=== PATIENT | male | born 1965 | race African-American/Black ===

== ENCOUNTER 2017-08-23 09:13 | Emergency (ER) | payer BC, SELFPAY | END 2017-08-23 10:35 | disposition home or self-care (01) | LOC: ERS 09:13 | DX: S00.03XA Contusion of scalp, initial encounter (principal); H57.8 Other specified disorders of eye and adnexa; W22.8XXA Striking against or struck by other objects, initial encounter | CPT/HCPCS: 99283 ==

== ENCOUNTER 2019-01-08 11:37 | Emergency (ER) | payer SELFPAY ==
--- NOTE | 2019-01-08 12:22 | RAD ---
TWO VIEWS OF THE LEFT HIP: COMPARISON: 04/06/2014. HISTORY: Left hip pain. FINDINGS: Two views left hip show no evidence of acute fracture or dislocation. There is moderate joint space narrowing. A subchondral cyst is seen along the acetabular roof. IMPRESSION: Moderate degenerative changes of the left hip without acute osseous abnormality. POS: [facility]
[2019-01-08] MEDS ORDERED: Ketorolac Tromethamine 60 MG/2 ML VIAL ONE (13:59)
[2019-01-08] MEDS ORDERED: Dexamethasone 4 mg/ml Vial ONE (13:59)
[2019-01-08] MEDS ORDERED: Ibuprofen 800 MG TAB ONE (14:55)
== END 2019-01-08 15:04 | disposition home or self-care (01) ==
LOC: ERS 11:37
DX: M16.12 Unilateral primary osteoarthritis, left hip (principal)
CPT/HCPCS: J1100; J1885